=== PATIENT | female | born 1970 | race Caucasian/White ===

== ENCOUNTER 2016-05-27 10:38 | Emergency (ER) | payer OTHER ==
[~2016-05-27] VITALS: Ht 162.6 cm; Wt 77.1 kg
--- NOTE | 2016-05-27 11:09 | ED GI/GU/ABDOMINAL COMPLAINT ---
History of Present Illness General Chief Complaint: General Adult Stated Complaint: TROUBLE EATING/DRINKING X 2 WEEKS Source: patient Exam Limitations: no limitations Allergies Coded Allergies: Penicillins (HIVES 05/27/16) Triage Note: PT STATES THAT FOR THE PAST 2 WEEKS SHE HAS BEEN HAVING HARD TIME SWALLOWING, SENT BY DR FRIEDMAN FOR EVAL. PT HAD BARIUM SWALLOW TEST BUT HAS NOT FOUND OUT RESULTS. COMPLAINS OF MID EPIGASTRIC AREA BURNING AND NAUSEA Triage Nurses Notes Reviewed? yes ? N Is pt currently ? No Duration: getting worse Timing: recent history Quality/Severity: burning, severe Severity Numbers: 7 Location: epigastric Radiation: no radiation Activities at Onset: eating HPI: Patient is a 45-year-old female who presents to emergency room stating that for the past 3 months she's been complaining of difficulty swallowing pain with swallowing symptoms and which she states that after her right rotator cuff repair performed in February she's been complaining of worsening symptoms where she followed up with automotive technician last week Dr. FRIEDMAN in which a barium swallow test was performed with unknown results for the patient at this time. Patient states that she can swallow although it is painful and she's had approximate 5 episodes of vomiting since her symptoms began. Last bowel movement was in the last 24 hours no blood no melena noted. Denies any fever chills chest pain shortness of breath cough Patient does complain of mild localized epigastric pain Denies any significant NSAID use. Patient currently is taking oxycodone for her shoulder repair Denies any significant alcohol use (SOM REZA,NEIL) Vital Signs & Intake/Output Vital Signs & Intake/Output Vital Signs Date Time Temp Pulse Resp B/P Pulse O2 O2 Flow FiO2 Ox Delivery Rate 05/27 1224 98.7 62 18 100/58 97 05/27 1050 97.1 80 18 127/78 98 Room Air Reconcile Medications Aspirin (Aspirin*) 81 MG TAB.CHEW 1 TAB PO DAILY HEART HEALTH (Reported) Enalapril Maleate 10 MG TABLET 1 TAB PO DAILY HEART (Reported) Isosorbide Mononitrate (Isosorbide Mononitrate ER) 30 MG TAB.ER.24H 1 TAB PO DAILY HEART (Reported) Levothyroxine Sodium 100 MCG TABLET 1 TAB PO DAILY AC THYROID (Reported) Lorazepam 0.5 MG TABLET 1 TAB PO BID ANXIETY (Reported) Metoprolol Tartrate 25 MG TABLET 1 TAB PO BID HEART (Reported) Mometasone Furoate (Nasonex) 50 MCG SPRAY.PUMP 1 SPRAY NASB DAILY ALLERGIES ( Reported) Nitroglycerin (Nitrostat) 0.4 MG TAB.SUBL 1 TAB SL DAILY NEEDED CHEST PAIN (Reported) 1st sign of attack; may repeat every 5 minutes until relief; if pain persists after 3 tablets in 15 minutes, prompt medical att Olopatadine HCl (Pataday) 0.2 % DROPS 1 GTT OPH DAILY EYE (Reported) Omeprazole Magnesium (Prilosec Otc) 20 MG TABLET.DR 1 TAB PO DAILY PRN GASTRITIS Ondansetron HCl (Zofran) 4 MG TABLET 1 TAB PO Q6-8P PRN NAUSEA Oxybutynin Chloride (Oxybutynin Chloride ER) 10 MG TAB.ER.24 1 TAB PO TID UNKNOWN (Reported) Rosuvastatin Calcium (Crestor) 40 MG TABLET 1 TAB PO DAILY CHOLESTEROL ( Reported) Tiotropium Dania (Spiriva) 18 MCG CAP.W.DEV 1 CAP INH DAILY BREATHING PROBLEMS (Reported) (ROLAN BASURTO,MARIIA) Past History Travel History Traveled to [place] past 21 day No Medical History Any Pertinent Medical History? see below for history Neurological: NONE EENT: allergies Cardiovascular: hyperlipidemia, myocardial infarction Respiratory: NONE Gastrointestinal: NONE Hepatic: NONE Renal: NONE Musculoskeletal: NONE Psychiatric: NONE Endocrine: hypothyroidism Blood Disorders: NONE Cancer(s): NONE Surgical History Surgical History: cholecystectomy Psychosocial History What is your primary language Wolof Tobacco Use: Quit >30 days ago ETOH Use: denies use Illicit Drug Use: marijuana Family History Hx Contributory? No (NEIL TORRES) Review of Systems Review of Systems Constitutional: Reports: no symptoms. EENTM: Reports: no symptoms. Respiratory: Reports: no symptoms. Cardiovascular: Reports: no symptoms. GI: Reports: see HPI, abdominal pain. Genitourinary: Reports: no symptoms. Musculoskeletal: Reports: no symptoms. Skin: Reports: no symptoms. Neurological/Psychological: Reports: no symptoms. Hematologic/Endocrine: Reports: no symptoms. Immunologic/Allergic: Reports: no symptoms. All Other Systems: Reviewed and Negative (NEIL TORRES) Physical Exam Physical Exam General Appearance: no apparent distress, alert, comfortable Gastrointestinal: normal bowel sounds, soft, MILD EPIGASTRIC POINT TENDERNESS, NO REBOUND TENDERNESS NO PERITONEAL SIGNS NO RIGHT UPPER QUADRANT PAIN Comments: Well-developed well-nourished person in no acute distress HEENT: Normal EENT exam, Neck: Supple, no lymphadenopathy, normal range of motion without pain or tenderness Back: Nontender, no CVA tenderness. Cardiovascular: Regular rate and rhythms no murmurs rubs or gallops, normal JVP Respiratory: Chest nontender. No respiratory distress.breath sounds clear to auscultation bilaterally Extremity: No edema, no calf tenderness to palpation, normal and equal pulses. Neuro: Alert oriented x3, motor sensory normal, Skin: No appreciable rash on exposed skin, skin is warm and dry. Psych: Mood and affect is normal, memory and judgment is normal. Core Measures ACS in differential dx? No Severe Sepsis Present: No Septic Shock Present: No (SOM REZA,NEIL) Progress Differential Diagnosis: AAA, AMI, appendicitis, biliary colic, bowel obstruction , colon cancer, cholecystitis, diverticulitis, endometritis, esophageal varices, gastritis, hepatitis, hernia, hemorrhoids, ischemic bowel, inflamm bowel dis, intrauterine , kidney stone, [place] tear, ovarian cyst, ovarian torsion, pancreatitis, PID/cervicitis, peptic ulcer, PUD/GERD, perforated viscous, SBO, threatened AB, UTI/pyelo Initial ED EKG: none Comments: PATIENT: BREANNA VILLARREAL PRESENT AGE: 45 PATIENT ACCOUNT NO: [id number] : 69 LOCATION: XRY ORDERING PHYSICIAN: MARTA FRIEDMAN MD SERVICE DATE: 05/25/16 EXAM TYPE: RAD - XRY-BARIUM SWALLOW/ESOPHAGRAM EXAMINATION: XR BARIUM SWALLOW/ESOPHAGRAM CLINICAL INFORMATION: Dysphagia COMPARISON: None TECHNIQUE: Double contrast barium swallow study was performed. FINDINGS: The cervical and thoracic esophagus appear normal in position, shape, outline, show normal peristalsis and no evidence of any obstruction to the flow of liquid barium as well as to a 12.5 mm barium pill. The esophageal mucosa appears unremarkable. The GE junction is in normal position. No evidence of any gastroesophageal reflux present. The visualized part of the stomach grossly appears unremarkable. FLUOROSCOPY TIME: 3 minutes, 37 seconds NUMBER OF IMAGES: 180 IMPRESSION: Unremarkable double contrast barium swallow study. The etiology for dysphagia is not evident on these images. DICTATED BY: TERRA BRINK MD DATE/TIME DICTATED:05/25/16 154 INSPECTOR FABRIC:DRE DATE/TIME TRANSCRIBED:05/25/161540 (NEIL TORRES) Plan of Care: Orders Procedure Date/time Status Add-on Test (ER Only) 05/27 1229 Active THROAT CULTURE W/QUICK STREP 05/27 1216 Active TROPONIN LEVEL 05/27 1145 Complete LIPASE 05/27 111 Complete COMPREHENSIVE METABOLIC PANEL 05/27 111 Complete CBC WITHOUT DIFFERENTIAL 05/27 111 Complete AMYLASE 05/27 111 Complete Laboratory Tests 05/27/16 1145: Anion Gap 8, Estimated GFR > 60, BUN/Creatinine Ratio 12.9, Glucose 106 H, Calcium 9.9, Total Bilirubin 0.5, AST 18, ALT 29, Alkaline Phosphatase 60, Troponin I < 0.01, Total Protein 6.9, Albumin 4.2, Globulin 2.7, Albumin/ Globulin Ratio 1.6, Amylase < 30 L, Lipase 72, CBC w Diff MAN DIFF ORDERED, RBC 4.60, MCV 92.1, MCH 30.9, RDW 14.1, MPV 7.8, Gran % 83.2 H, Lymphocytes % 10.3 L, Monocytes % 6.1, Eosinophils % 0.4, Basophils % 0 L, Absolute Granulocytes 9.0 H, Absolute Lymphocytes 1.1 L, Absolute Monocytes 0.7 H, Absolute Eosinophils 0, Absolute Basophils 0, Platelet Estimate ADEQUATE, Normocytic RBCs VERIFIED, Normochromic RBCs VERIFIED, PUBS MCHC 33.6 Upon initial evaluation patient was in no apparent distress I reviewed patient's previous barium evaluation showing unremarkable findings. Patient was given GI cocktail 05/27/2016 12:16:59 PM- patient does state that she felt improved with this and was able tolerate Upon discharge patient looks well no apparent distress and will comply with discharge instructions and had no questions Discussed disposition plan with Dr. Burton who agrees (NEIL TORRES) Departure Departure Disposition: HOME OR SELF CARE Condition: Stable Clinical Impression Primary Impression: Dysphagia Secondary Impressions: Epigastric pain Referrals: LES COELHO,DANIELLE Sommers (PCP/Family) Additional Instructions: As discussed you have an appointment on Monday for a endoscopy with Dr. FRIEDMAN , please go to this for further evaluation treatment. Begin the prescription of Prilosec for your symptoms. Begin [id number] Maalox for your symptoms, continue your stool softener for improvement of bowel movements. If symptoms worsen return to emergency room. Begin drinking plain water for hydration and a clear liquid and bland diet and please continue to avoid NSAIDs as this may worsen symptoms. Begin the prescription is Zofran for future nausea. Prescriptions are waiting at your [facility] pharmacy Departure Forms: Customer Survey General Discharge Information Prescriptions: Current Visit Scripts Ondansetron HCl (Zofran) 1 TAB PO Q6-8P PRN NAUSEA #15 TAB Omeprazole Magnesium (Prilosec Otc) 1 TAB PO DAILY PRN GASTRITIS #20 TAB (NEIL TORRES) PA/SENIOR LIBRARIAN Co-Sign Statement Statement: ED Attending supervision documentation- [] I saw and evaluated the patient. I have also reviewed all the pertinent lab results and diagnostic results. I agree with the findings and the plan of care as documented in the PA's/SENIOR LIBRARIAN's documentation. [X] I have reviewed the ED Record and agree with the PA's/SENIOR LIBRARIAN's documentation. [] Additions or exceptions (if any) to the PAs/SENIOR LIBRARIAN's note and plan are summarized below: [] (ROLAN BASURTO,MARIIA)
[2016-05-27] MEDS ORDERED: ISOSORBIDE MONO30 M1 PO (11:36)
[2016-05-27] MEDS ORDERED: ASPIRIN81 M4 PO (11:36)
[2016-05-27] MEDS ORDERED: LEVOTHYROXINE100 MC1 PO (11:36)
[2016-05-27] MEDS ORDERED: ENALAPRIL MALEA10 M1 PO (11:37)
[2016-05-27] MEDS ORDERED: METOPROLOL TART25 M1 PO (11:37)
[2016-05-27] MEDS ORDERED: CRESTOR40 M2 PO (11:37)
[2016-05-27] MEDS ORDERED: OXYBUTYNIN CHLO10 M1 PO (11:37)
[2016-05-27] MEDS ORDERED: LORAZEPAM0.5 M1 PO (11:38)
[2016-05-27] MEDS ORDERED: SPIRIVA18 MCG INH (11:39)
[2016-05-27] MEDS ORDERED: NASONEX17 GM NASB (11:39)
[2016-05-27] MEDS ORDERED: NITROSTAT0.4 M1 SL (11:39)
[2016-05-27] MEDS ORDERED: PATADAY2.5 ML OPH (11:40)
[2016-05-27 12:02] LABS: ABSOLUTE BASOPHIL COUNT 0 /CUMM (0.0-0.2); ABSOLUTE EOSINOPHIL COUNT 0 /CUMM (0.0-0.7); ABSOLUTE LYMPH COUNT 1.1 /CUMM (1.2-3.4); ABSOLUTE MONOCYTE COUNT 0.7 /CUMM (0.10-0.60); BASOPHIL % 0 % (0.0-2.0); EOSINOPHIL % 0.4 % (0-5); GRANULOCYTE % 83.2 % (42.2-75.2); HEMATOCRIT 42.3 % (37-47); MEAN CORPUSCULAR HGB 30.9 PG (27.0-31.0); MEAN CORPUSCULAR HGB CONC 33.6 G/DL (33.0-37.0); MEAN CORPUSCULAR VOLUME 92.1 FL (81.0-99.0); MEAN PLATELET VOLUME 7.8 FL (7.4-10.4); PLATELET COUNT 242 /CUMM (130-400); RBC DISTRIBUTION WIDTH 14.1 % (11.5-14.5); WHITE BLOOD CELL COUNT 10.8 /CUMM (4.8-10.8)
[2016-05-27] MEDS ORDERED: ZOFRAN4 M2 PO (12:19)
[2016-05-27] MEDS ORDERED: PRILOSEC OTC20 M1 PO (12:19)
[2016-05-27 12:24] VITALS: BP 100/58
== END 2016-05-27 13:16 ==
LOC: ERH 10:38
PROVIDERS: Physician Assistant
DX: R13.10 Dysphagia, unspecified (principal); R10.13 Epigastric pain
CPT/HCPCS: J3101